=== PATIENT | female | born 1995 | race Caucasian/White ===

== ENCOUNTER 2017-07-02 07:41 | Emergency (ER) | payer SELFPAY ==
[~2017-07-02] VITALS: Ht 162.6 cm; Wt 45.5 kg
[2017-07-02 07:51] VITALS: BP 117/74; PULSE 85; TEMP 97.4
== END 2017-07-02 09:25 | disposition home or self-care (01) ==
LOC: COL.ER 07:41
DX: O99.519 Diseases of the respiratory system complicating pregnancy, unspecified trimester (principal); J06.9 Acute upper respiratory infection, unspecified; F17.210 Nicotine dependence, cigarettes, uncomplicated; Z3A.00 Weeks of gestation of pregnancy not specified